=== PATIENT | male | born 1940 | race Caucasian/White ===

== ENCOUNTER → 2017-09-11 | Outpatient (CLI) | payer MEDICARE, BC ==
[~2017-09-11] MED LIST: REGADENOSON 0.4 MG/5 ML SYRINGE ONE
== END | disposition home or self-care (01) ==
LOC: CFH 08:01
PROVIDERS: ATTEND Internal Medicine Cardiovascular Disease
DX: I25.10 Atherosclerotic heart disease of native coronary artery without angina pectoris (principal); I10 Essential (primary) hypertension; I49.3 Ventricular premature depolarization
CPT/HCPCS: 78452; 93017; A9502; J2785

== ENCOUNTER 2019-04-25 13:01 | Outpatient (CLI) | payer MEDICARE, BC | END 2019-04-25 23:59 | disposition home or self-care (01) | LOC: CFH 13:01 | PROVIDERS: ATTEND Internal Medicine Hematology & Oncology | DX: J98.4 Other disorders of lung (principal); R59.1 Generalized enlarged lymph nodes; D72.820 Lymphocytosis (symptomatic) | CPT/HCPCS: 71260; 74177; Q9967 ==

== ENCOUNTER → 2019-10-30 | Outpatient (CLI) | payer MEDICARE, BC | END | disposition home or self-care (01) | LOC: CFH 07:21 | PROVIDERS: ATTEND Internal Medicine Cardiovascular Disease | DX: I08.8 Other rheumatic multiple valve diseases (principal); I25.10 Atherosclerotic heart disease of native coronary artery without angina pectoris; I48.91 Unspecified atrial fibrillation; E78.5 Hyperlipidemia, unspecified; Z95.1 Presence of aortocoronary bypass graft | CPT/HCPCS: 78452; 93017; 93306; A9502; J2785 ==